=== PATIENT | male | born 1950 | race Caucasian/White ===

== ENCOUNTER 2017-10-08 10:29 | Day surgery (SDC) | payer MEDICARE, OTHER ==
[~2017-10-08 10:29] MED LIST: KETOROLAC TROMETHAMINE 0.45% 4 DROP/0.4 ML DROPERETTE OD PRN
[2017-10-08] MEDS: TETRACAINE HCL 0.5% OPH SOLN 2 ML OD PRN ×4 (11:21→12:02)
[2017-10-08] MEDS: CYCLOPENTOLATE 0.2%/PHENYLEPHRINE 1% OPH SOLN 2 ML OD PRN ×3 (11:22→11:44)
[2017-10-08] MEDS: TROPICAMIDE 1% OPH SOLN 3 ML OD PRN ×3 (11:22→11:44)
[2017-10-08] MEDS: BESIFLOXACIN HCL 0.6% OPH SUSP 5 ML BOTTLE OD PRN ×4 (11:23→12:12)
[2017-10-08] MEDS ORDERED: MIDAZOLAM 2 MG/2 ML INJ ONE (11:45)
[2017-10-08] MEDS ORDERED: FENTANYL CITRATE INJ/PF 100 MCG/2 ML AMPUL ONE (11:45)
[2017-10-08] MEDS: LIDOCAINE 1%/PHENYLEPHRINE 1.5% 1 ML VIAL ONE ×3 (12:02→12:12)
[2017-10-08] MEDS: EPINEPHRINE INJ/PF 1 MG/1 ML AMPULE ONE ×3 (12:02→12:12)
[2017-10-08] MEDS: CHONDR SU A NA/HYALUR INTRAOC KIT (SURGICARE) ONE ×2 (12:02)
--- NOTE | 2017-10-08 18:01 | [facility] DISCHARGE SUMMARY E ---
[facility] Discharge Summary NAME: MARCELA VALERIO AGE: 67Y ADMITTED: 10/08/2017 DISCHARGED: 10/08/2017 FINAL DIAGNOSIS: Cataract, right eye. HOSPITAL COURSE: This is a 67-year-old male who underwent cataract extraction of the right eye. He underwent surgery because he was having difficulty with starbursts and halos around headlights at night. DISCHARGE INSTRUCTIONS: He should be on a regular diet. No bending at his waist, no heavy lifting. He should use his Besivance, Ilevro and Durezol at 3:00 p.m. and 8:00 p.m. Sleep with a rigid shield. I will see him for his 1-day postoperative tomorrow. DICTATING PHYSICIAN: FRANCK GARRISON M.D. [id number] PHY#: [id number] ID: [id number] JOB#: [id number] ACCT: [id number] cc:FRANCK GARRISON M.D. >
--- NOTE | 2017-10-08 18:01 | [facility] OPERATIVE REPORT E ---
[facility] Operative Report NAME: MARCELA VALERIO AGE: 67Y DATE OF SURGERY: 10/08/2017 ROOM: PREOPERATIVE DIAGNOSIS: CATARACT, RIGHT EYE. POSTOPERATIVE DIAGNOSIS: CATARACT, RIGHT EYE. OPERATION: Cataract extraction with insertion of an IOL of the right eye. SURGEON: FRANCK GARRISON M.D. ANESTHESIA: Topical. PROCEDURE: After obtaining appropriate consent, the patient's right eye was prepped and draped in sterile fashion as well as the surgeon in a sterile manner and cataract surgery was started. First a paracentesis blade was used to make a side-port incision. Viscoelastic was used to inflate the anterior chamber. Next a 2.4 mm incision was made with a 2.4 mm blade, clear corneal temporally. A continuous capsulorrhexis was made using a cystotome and Utrata forceps. Following this hydrodissection was carried out to make the lens fully loose and mobile and it was rotated 90 degrees. Following this, a mzyzvx-apx-vwzxnqf technique was used to phacoemulsify the lens with a CDE of 9.20. The remaining cortex was removed with irrigation/aspiration. Provisc was instilled into the capsular bag to inflate the bag. A SN60WF, 16.5 diopter lens was placed. The remaining viscoelastic material was removed with irrigation/aspiration. Following this, the incision was found to be watertight. Besivance was instilled into the eye and a protective shield was placed over the eye. The patient returned to the postoperative recovery in stable condition. DICTATING PHYSICIAN: FRANCK GARRISON M.D. [id number] PHY#: [id number] ID: [id number] JOB#: [id number] ACCT: [id number] cc:FRANCK GARRISON M.D. >
== END 2017-10-08 13:09 | disposition home or self-care (01) ==
LOC: SC 10:29
PROVIDERS: ATTEND Internal Medicine
DX: H25.11 Age-related nuclear cataract, right eye (principal); H57.03 Miosis; H40.013 Open angle with borderline findings, low risk, bilateral; Z96.1 Presence of intraocular lens; H59.812 Chorioretinal scars after surgery for detachment, left eye; I10 Essential (primary) hypertension; E78.00 Pure hypercholesterolemia, unspecified; N40.0 Benign prostatic hyperplasia without lower urinary tract symptoms; Z87.891 Personal history of nicotine dependence; Z79.899 Other long term (current) drug therapy
CPT/HCPCS: 66984; V2632; J2250; J3490; A9270; J0171; J3010; J2370; 142